=== PATIENT | female | born 1945 | race Caucasian/White ===

== ENCOUNTER 2017-02-20 10:02 | Emergency (ER) | payer MEDICARE, MEDICAID ==
[~2017-02-20] VITALS: Ht 165.1 cm; Wt 81.6 kg
[~2017-02-20 10:02] MED LIST: ACTOS45 MG ORAL; ASPIRIN81 MG ORAL; BENAZEPRIL HCL40 MG ORAL; FAMOTIDINE20 MG ORAL; JANUVIA25 MG ORAL; MELOXICAM15 MG PO; METFORMIN HCL1000 M1 ORAL; MULTIVITAMINS1 EAC2 ORAL; NAPROXEN SODIU550 M1 ORAL; NEXIUM40 MG ORAL; PRAVACHOL40 MG ORAL; PROMETHAZINE-C118 M1 ORAL; TUMS500 MG ORAL; VITAMIN D250000 UNI1 ORAL; ZOFRAN4 M3 ORAL
[2017-02-20] MEDS ORDERED: TdaP Vaccine 0.5ml Syr IM ONE (10:15)
[2017-02-20] MEDS ORDERED: Ketorolac 60mg Inj IM ONE (10:15)
[2017-02-20] MEDS ORDERED: Bacitracin Oint UD TOPIC ONE (10:15)
--- NOTE | 2017-02-20 11:38 | Diagnostic Imaging Report ---
Indication: TRAUMA, pain, status post fall Technique: 3 views of the lumbar spine Comparison: None Findings:Bony alignment is normal. There is degenerative remodeling of the vertebral bodies, vertebral body heights otherwise preserved. There is degenerative disc narrowing at every disc level, worst at L4-5 and L5-S1. There are anterior degenerative proliferative changes. No acute fractures. No dislocations. Pedicles are intact. Sacroiliac joint spaces are preserved. There are cholecystectomy clips Impression:Degenerative changes. No acute bony trauma
[2017-02-20 11:40] VITALS: BP 151/71
--- NOTE | 2017-02-20 12:00 | Diagnostic Imaging Report ---
Indication: TRAUMA, pain, status post fall Technique: 3 views of the left ankle Comparison: none Findings: There is a small plantar spur. No acute fractures. No dislocations. There is mild degenerative narrowing of the ankle joint. Impression: Degenerative changes. No acute bony trauma
--- NOTE | 2017-02-20 13:20 | Diagnostic Imaging Report ---
Indication: TRAUMA, pain, status post fall Technique: 3 views of the left knee Comparison: None Findings:There is medial proliferative change. No acute fractures. There is minimal degenerative joint space narrowing of the medial compartment. There is patella baja. There is probably degenerative narrowing of the patellofemoral joint compartment. No definite suprapatellar effusion. Bones are osteoporotic Impression:No acute bony trauma Degenerative changes, as described
[2017-02-20] MEDS ORDERED: IBUPROFEN600 MG ORAL (13:40)
[2017-02-20] MEDS ORDERED: TRAMADOL HCL50 MG ORAL (13:40)
[2017-02-20] MEDS ORDERED: BACITRACIN15 GM TOPIC (13:40)
[2017-02-20 13:41] VITALS: BP 140/104
[2017-02-20 13:51] VITALS: BP 140/104
--- NOTE | 2017-02-21 00:42 | Emergency Room Report ---
History of Present Illness General Chief Complaint: Multiple Trauma/Fall Source: Patient, EMS Present Illness HPI Patient slipped and twisted L ankle L knee and fell backwards hitting head without LOC. Took motrin last night but unable to sleep well due to pain. Pain is 10/10 ankle and knee - sharp and aching. Applied willie and able to ambulate at home (walked out to meet paramedics). Pain also in lower back, not radiating. No blood thinners, fever, weakness, vomiting. No dysuria. No chest pain, palpitations, dizziness. Scraped L leg. Tetanus > 10. Allergies: Coded Allergies: ASPIRIN (Verified Adverse Reaction, Intermediate, 10/18/16) Stomach pain Patient History Past Medical History: see triage record Social History: Denies: alcohol use, smoking Social History Narrative at home Last Menstrual Period: na Reviewed Nursing Documentation: PMH: Agreed, PSxH: Agreed Nursing Documentation-PMH Past Medical History: No History, Except For Hx Cardiac Problems: No Hx Hypertension: Yes Hx Pacemaker: No Hx Asthma: No Hx COPD: No Hx Diabetes: Yes Hx Gastrointestinal Problems: Yes - gallstones Review of Systems All Other Systems: negative except mentioned in HPI Physical Exam Vital Signs Date Time Temp Pulse Resp B/P Pulse Ox O2 Delivery O2 Flow Rate FiO2 02/20/17 10:16 98.6 88 18 138/66 98 Room Air Sp02 EP Interpretation: reviewed, normal General Appearance: well appearing, no apparent distress, alert, GCS 15 Head: normocephalic, other - occiptal tend without hematoma Eyes: bilateral eye EOMI, bilateral eye PERRL, bilateral eye normal inspection ENT: hearing grossly normal, normal voice Neck: full range of motion, supple, no bony tend, tender - bilaterally with trapezius tenderness Respiratory: no respiratory distress, speaking full sentences Cardiovascular #1: normal peripheral pulses, regular rate, rhythm, no edema Gastrointestinal: non tender, soft, no mass, no organomegaly Musculoskeletal: digits/nails normal - except bunion deform with L 4th toe chronic deformity, no calf tenderness, pelvis stable, decreased range of mation - flexion and extension of L knee, swelling - L knee and ankle with stable ligaments, no significant effusion, no drawer, other - lumbar paraspinous tenderness, no bone tenderness. Able to sit. SLR some lumbar tenderness Neurologic: oriented x3, physician aide III-XII nml as tested, motor strength/tone normal , DTRs symmetric, sensory intact, cerebellar normal, speech normal Psychiatric: mood/affect normal Skin: normal color, warm/dry, abrasions - L upper calf Medical Decision Making Diagnostic Impression: Primary Impression: Ankle sprain Qualified Codes: S93.402A - Sprain of unspecified ligament of left ankle, initial encounter Additional Impressions: Knee sprain Qualified Codes: S83.92XA - Sprain of unspecified site of left knee, initial encounter Lumbar strain/contusion Fall Qualified Codes: W19.XXXA - Unspecified fall, initial encounter Neck strain Qualified Codes: S16.1XXA - Strain of muscle, fascia and tendon at neck level , initial encounter Head contusion Qualified Codes: S00.03XA - Contusion of scalp, initial encounter ER Course Patient presents with L knee, ankle, low back and neck pain post slip and fall last night. Ddx: fx, sprain, contusion, spasms. As ambulatory, suspicion is less likely, but due to age and degree of pain, need to obtain x-rays, knee, ankle ([place] age > 65) and back. Neck exam against fx. Will also treat with analgesia. No red flag sy or signs for CT of head - no LOC and normal neuro - past significant observation period. Xrays with osteopenia and DJD. Sleeping post toradol. Air splint and willie applied by tech. Position excellent and improved. Neurovasc checked by me and normal. Improved. Patient stable for outpatient observation and treatment. Other X-Ray Diagnostic Results Other X-Ray Diagnostic Results #1: X-Ray Ordered: L ankle EP Interpretation: Yes Findings: no fractures, no dislocation, other - STS and osteopenia Number of Views: 3 Other X-Ray Diagnostic Results #2: X-Ray Ordered: L knee EP Interpretation: Yes Findings: no fractures, no dislocation, other - STS and DJD Number of Views: 3 Other X-Ray Diagnostic Results #3: X-Ray Ordered: lumbar EP Interpretation: Yes Findings: no fractures, no dislocation, other - severe DJD Number of Views: 3 Last Vital Signs Date Time Temp Pulse Resp B/P Pulse Ox O2 Delivery O2 Flow Rate FiO2 02/20/17 13:51 98.6 81 18 140/104 97 Room Air Status: improved Disposition: HOME, SELF-CARE Condition: Improved Scripts Bacitracin (Bacitracin) 28.4 Gm Oint...g. 1 APPLIC TOPIC BID, #10 GM 1 Refill Prov: Greg Morrissey M.D. 02/20/17 Tramadol Hcl* (ULTRAM*) 50 Mg Tablet 50 MG ORAL Q6H Y for For Pain, #10 TAB 0 Refills Prov: Greg Morrissey M.D. 02/20/17 Ibuprofen* (MOTRIN*) 600 Mg Tablet 600 MG ORAL Q6HR, #20 TAB 0 Refills Prov: Greg Morrissey M.D. 02/20/17 Patient Instructions: Lumbosacral Strain, Contusion, Cast or Splint Care, RICE for Routine Care of Injuries Additional Instructions: OK to take tylenol. Elevation, ice and rest. Ask your doctor for a sorter operator. Greg Morrissey M.D. Feb 21, 2017 00:42
== END 2017-02-20 14:14 | disposition home or self-care (01) ==
LOC: EDBD 10:02 → EDUNIT# 10:02 → EMR 10:31
DX: S93.402A Sprain of unspecified ligament of left ankle, initial encounter (principal); S83.92XA Sprain of unspecified site of left knee, initial encounter; S39.012A Strain of muscle, fascia and tendon of lower back, initial encounter; S16.1XXA Strain of muscle, fascia and tendon at neck level, initial encounter; S00.03XA Contusion of scalp, initial encounter; Z88.6 Allergy status to analgesic agent; I10 Essential (primary) hypertension; Z23 Encounter for immunization; E11.9 Type 2 diabetes mellitus without complications; M47.896 Other spondylosis, lumbar region; Y92.9 Unspecified place or not applicable; M85.872 Other specified disorders of bone density and structure, left ankle and foot; W01.0XXA Fall on same level from slipping, tripping and stumbling without subsequent striking against object, initial encounter; Y93.9 Activity, unspecified; M17.12 Unilateral primary osteoarthritis, left knee
CPT/HCPCS: 29540; 72020; 90471; 90715; 96372; 99284

== ENCOUNTER 2017-03-07 21:36 | Emergency (ER) | payer MEDICARE, MEDICAID ==
[~2017-03-07] VITALS: Ht 165.1 cm; Wt 83.0 kg
[~2017-03-07 21:36] MED LIST changes: +BACITRACIN15 GM TOPIC; +IBUPROFEN600 MG ORAL; +TRAMADOL HCL50 MG ORAL
[2017-03-07] MEDS ORDERED: Ketorolac 30mg Inj IM ONE (22:15)
[2017-03-07 22:24] VITALS: BP 154/64
--- NOTE | 2017-03-07 22:36 | Emergency Room Report ---
History of Present Illness General Chief Complaint: Multiple Trauma/Fall Source: Patient Present Illness HPI Is a 71-year-old female with no significant aspiration. She presents with chief complaint of buttock pain and tailbone pain. She slipped on wet for yesterday. She landed on her butt. Complaining of left-sided buttock pain. No loss of consciousness. No other injury. Pain is 8/10. No relief with ibuprofen. Described as burning sensation. Worse with palpation. Worse with movement. Allergies: Coded Allergies: ASPIRIN (Verified Adverse Reaction, Intermediate, 10/18/16) Stomach pain Patient History Past Medical History: see triage record, old chart reviewed Past Surgical History: other Pertinent Family History: none Social History: Denies: smoking Now: No Immunizations: other Reviewed Nursing Documentation: PMH: Agreed, PSxH: Agreed Nursing Documentation-PMH Past Medical History: No History, Except For Hx Cardiac Problems: No Hx Hypertension: Yes Hx Pacemaker: No Hx Asthma: No Hx COPD: No Hx Diabetes: Yes Hx Gastrointestinal Problems: Yes - gallstones Review of Systems Eye: Denies: blurred vision, eye pain ENT: Denies: ear pain, nose congestion, throat swelling Respiratory: Denies: cough, shortness of breath Cardiovascular: Denies: chest pain, palpitations Gastrointestinal: Denies: abdominal pain, diarrhea, nausea, vomiting Musculoskeletal: Reports: back pain, Denies: joint pain Skin: Denies: rash Neurological: Denies: headache, numbness Endocrine: Denies: increased thirst, increased urine Hematologic/Lymphatic: Denies: easy bruising All Other Systems: negative except mentioned in HPI Physical Exam Vital Signs Date Time Temp Pulse Resp B/P Pulse Ox O2 Delivery O2 Flow Rate FiO2 03/07/17 21:39 98.1 88 19 162/67 98 Room Air vitals with hypertension Sp02 EP Interpretation: reviewed, normal General Appearance: well appearing, no apparent distress, alert Head: normocephalic, atraumatic Eyes: bilateral eye EOMI, bilateral eye PERRL ENT: hearing grossly normal, normal pharynx Neck: full range of motion, supple, no meningismus Respiratory: chest non-tender, lungs clear, normal breath sounds Cardiovascular #1: regular rate, rhythm, no murmur Gastrointestinal: normal bowel sounds, non tender, no mass, no organomegaly, no bruit, non-distended Musculoskeletal: back normal, gait/station normal, normal range of motion, other - Tenderness over the inferior left buttock. Tenderness over the lower sacral coccygeal area. No ecchymosis. No crepitus. Neurologic: alert, oriented x3 Psychiatric: mood/affect normal Skin: warm/dry Medical Decision Making Diagnostic Impression: Primary Impression: Contusion, buttock Qualified Codes: S30.0XXA - Contusion of lower back and pelvis, initial encounter ER Course She presents with a fall and contusion to the buttock. No fracture dislocation. No cauda equina syndrome. Will discharge home. CT/MRI/US Diagnostic Results CT/MRI/US Diagnostic Results : Imaging Test Ordered: CT pelvis Impression negative per radiologist Last Vital Signs Date Time Temp Pulse Resp B/P Pulse Ox O2 Delivery O2 Flow Rate FiO2 03/07/17 22:24 97.9 84 18 154/64 99 Room Air Status: improved Disposition: HOME, SELF-CARE Condition: Stable Scripts Acetaminophen With Codeine (T#3) (TYLENOL #3 TAB*) Y Tab 1 TAB ORAL Q8H Y for For Pain, #20 TAB Prov: CRISTOBAL CIFUENTES M.D. 03/07/17 Referrals: NOT CHOSEN IPA/,REFERRING (PCP) Additional Instructions: Followup with your Dr. in 7 days. Return if symptom worsen. CRISTOBAL CIFUENTES M.D. Mar 07, 2017 22:36
[2017-03-07] MEDS ORDERED: ACETAMINOPHEN-1 EAC1 ORAL (23:30)
[2017-03-07 23:35] VITALS: BP 154/64
--- NOTE | 2017-03-08 10:06 | Diagnostic Imaging Report ---
Indication: Pelvic trauma and pain Technique: CT pelvis was performed utilizing automated exposure control without intravenous contrast material. Axial and coronal images were generated. CT dose: Total DLP 592 mGycm; CTDI vol 30.0 mGy Comparison: None Findings: There is a questionable anterior cortical defect of the coccyx series 5 image 77 and 78. There is otherwise no CT evident fracture or dislocation. There is degenerative narrowing of the bilateral hips. Degenerative changes are seen of the partially visualized lumbar spine with vacuum phenomenon at L4/L5 and L5/S1. There is osteopenia. Atherosclerotic changes are seen. Impression: Questionable anterior cortical defect of the coccyx series 5 images 77 and 78 possibly a nondisplaced fracture. Followup recommended as indicated. Otherwise no CT evident fracture or dislocation. Clinical correlation recommended. Other findings as above. Findings discussed with Dr. Morillo. The CT scanner at [facility] is accredited by the [employer] and the scans are performed using protocols designed to limit radiation exposure to as low as reasonably achievable to attain images of sufficient resolution adequate for diagnostic evaluation.
== END 2017-03-07 23:35 | disposition home or self-care (01) ==
LOC: EMR 21:55
DX: S30.0XXA Contusion of lower back and pelvis, initial encounter (principal); W01.0XXA Fall on same level from slipping, tripping and stumbling without subsequent striking against object, initial encounter; Y92.9 Unspecified place or not applicable; I10 Essential (primary) hypertension; Z88.6 Allergy status to analgesic agent; E11.9 Type 2 diabetes mellitus without complications
CPT/HCPCS: 72192; 96372; 99284; J1885

== ENCOUNTER 2018-03-02 18:45 | Emergency (ER) | payer MEDICARE, MEDICAID ==
[~2018-03-02] VITALS: Ht 154.9 cm; Wt 72.6 kg
[~2018-03-02 18:45] MED LIST changes: +ACETAMINOPHEN-1 EAC1 ORAL
[2018-03-02] MEDS ORDERED: Albuterol/Ipratropium 3ml neb HHN ONE (19:30)
--- NOTE | 2018-03-02 19:39 | Emergency Room Report ---
History of Present Illness General Chief Complaint: General Complaint Source: Patient Present Illness HPI Patient is a 72-year-old female who presented after increased chest discomfort. Patient reports having intermittent chest discomfort associated with arm numbness. Patient reports having some chest tightness. Patient states she has prior history of diabetes as well as high cholesterol. Patient reports having had chest tightness. She reports having some radiation to her left arm. Patient states that she is a smoker. The patient states that she had no prior heart condition. She states that she had increased pain for the past few hours. She reports having onset of pain with left arm numbness approximate 5 days ago. She reports having increased chest tightness intermittently over the past 2 days. She reports having a choking-like sensation. The patient states that she is a smoker Allergies: Coded Allergies: ASPIRIN (Verified Adverse Reaction, Intermediate, 10/18/16) Stomach pain Patient History Past Medical History: see triage record Last Menstrual Period: n/a Reviewed Nursing Documentation: PMH: Agreed; PSxH: Agreed Nursing Documentation-PMH Hx Cardiac Problems: No Hx Hypertension: Yes Hx Pacemaker: No Hx Asthma: No Hx COPD: No Hx Diabetes: Yes Hx Gastrointestinal Problems: Yes - gallstones Review of Systems All Other Systems: negative except mentioned in HPI Physical Exam Vital Signs Date Time Temp Pulse Resp B/P (MAP) Pulse Ox O2 Delivery O2 Flow Rate FiO2 03/02/18 19:08 97.8 84 16 144/81 98 Room Air 97.9 Sp02 EP Interpretation: reviewed, normal General Appearance: normal inspection, well appearing, no apparent distress, alert, Chronically Ill Head: atraumatic ENT: normal ENT inspection, hearing grossly normal, normal voice Neck: normal inspection, full range of motion, supple, no bony tend Respiratory: normal inspection, lungs clear, normal breath sounds, no respiratory distress, no retraction, no wheezing Cardiovascular #1: regular rate, rhythm, no edema Gastrointestinal: normal inspection, normal bowel sounds, non tender, soft, no guarding, no hernia Genitourinary: no CVA tenderness Musculoskeletal: normal inspection, back normal, normal range of motion Neurologic: normal inspection, alert, oriented x3, responsive, construction inspector III-XII nml as tested, speech normal Psychiatric: normal inspection, judgement/insight normal, mood/affect normal Skin: normal inspection, normal color, no rash Medical Decision Making Diagnostic Impression: Primary Impression: STEMI (ST elevation myocardial infarction) ER Course This patient presented for chest pain. Differential diagnosis included but was not limited to acute coronary syndrome, pulmonary embolism, pneumonia, aortic dissection, shingles, pneumothorax, aortic dissection, esophageal rupture, pericarditis. Because of complexity of patient's case laboratory testing and imaging studies were ordered. EKG interpreted by me showed normal sinus rhythm with a rate of [address] elevation in the inferior and lateral leads the patient was noted to have some lateral reciprocal changes. The patient was noted to be allergic to aspirin. The patient was given Plavix. Patient was discussed with Dr. Lewis at [facility] for STEMI transfer. EKG Diagnostic Results Rate: normal ST Segments: other - st elevation inferior ASA given to the pt in ED: No - aspirin allergy Rhythm Strip Diag. Results EP Interpretation: yes Rhythm: NSR, no PVC's, no ectopy Last Vital Signs Date Time Temp Pulse Resp B/P (MAP) Pulse Ox O2 Delivery O2 Flow Rate FiO2 03/02/18 19:08 97.8 84 16 144/81 98 Room Air 97.9 Status: unchanged Disposition: ER [facility] Condition: Serious Rigo Bardales Mar 02, 2018 19:39
[2018-03-02] MEDS: Heparin 5000 units/ml inj IV ONE (19:44)
[2018-03-02] MEDS ORDERED: Heparin 25,000u/D5W 500ml 500 ML IV SCH (19:45)
[2018-03-02 19:57] VITALS: BP 112/54
[2018-03-02] MEDS: Aspirin Baby 81mg ORAL ONE (20:01)
[2018-03-02 20:04] LABS: BASOPHILS % (AUTO) 1.3 % (0.0-2.0); EOSINOPHILS % (AUTO) 1.2 % (0.0-3.0); HEMATOCRIT 39.7 % (37.0-47.0); HEMOGLOBIN 13.3 G/DL (12.0-16.0); LYMPHOCYTES % (AUTO) 24.2 % (20.0-45.0); MEAN CORPUSCULAR VOLUME 90 FL (80-99); NEUTROPHILS % (AUTO) 68.3 % (45.0-75.0); PLATELET COUNT 150 K/UL (150-450); RED BLOOD COUNT 4.43 M/UL (4.20-5.40); RED CELL DISTRIBUTION WIDTH 13.3 % (11.6-14.8); WHITE BLOOD COUNT 9.4 K/UL (4.8-10.8)
[2018-03-02 20:09] LABS: ANION GAP 6 mmol/L (5-15); BLOOD UREA NITROGEN 19 mg/dL (7-18); CALCIUM 9.1 MG/DL (8.5-10.1); CARBON DIOXIDE 28 MMOL/L (21-32); CHLORIDE 100 MMOL/L (98-107); CREATININE 0.8 MG/DL (0.55-1.30); POTASSIUM 4.8 MMOL/L (3.5-5.1); SODIUM 134 MMOL/L (136-145)
[2018-03-02 20:19] VITALS: BP 112/54
[2018-03-02 20:22] LABS: ALANINE AMINOTRANSFERASE 34 U/L (12-78); ALBUMIN 3.7 G/DL (3.4-5.0); ALKALINE PHOSPHATASE 82 U/L (46-116); ASPARTATE AMINO TRANSFERASE 32 U/L (15-37); BILIRUBIN,TOTAL 0.3 MG/DL (0.2-1.0); CKMB 8.5 NG/ML (0.0-3.6); CREATINE KINASE 196 U/L (26-308)
--- NOTE | 2018-03-03 10:53 | Diagnostic Imaging Report ---
Indication: Neck pain Comparison: None Findings: Two views of the neck performed. There is no soft tissue swelling or mass identified. The epiglottis is unremarkable. Subglottic airway and retropharyngeal region appear clear. No radiopaque foreign body is identified. Impression: Negative evaluation of the neck.
--- NOTE | 2018-03-03 10:54 | Diagnostic Imaging Report ---
Indication: Dyspnea Comparison: 10/18/2016 A single view chest radiograph was obtained. Findings: Mild pulmonary vascular congestion demonstrated. Interstitial densities are present. Bones are slightly osteopenic. Heart is borderline enlarged. IMPRESSION: Probable mild interstitial edema. Please correlate clinically
--- NOTE | 2018-03-03 16:33 | Cardiology Report ---
APPROVED REPORT EKG Measurement Heart [id number] CT 180P45 [id number] Sinus rhythm with occasional premature ventricular complexes and fusion complexes ST elevation, consider inferior injury or acute infarct Consider right ventricular involvement in acute inferior infarct Abnormal ECG
== END 2018-03-02 20:20 | disposition short-term general hospital (02) ==
LOC: EMR 19:44
DX: I21.19 ST elevation (STEMI) myocardial infarction involving other coronary artery of inferior wall (principal); I10 Essential (primary) hypertension; E11.9 Type 2 diabetes mellitus without complications; Z88.6 Allergy status to analgesic agent
CPT/HCPCS: 36415; 70360; 71045; 80053; 82550; 82553; 83880; 84484; 85025; 85379; 85730; 93005; 96374; 99285; J1644

== ENCOUNTER 2018-06-07 15:09 | Emergency (ER) | payer MEDICARE, MEDICAID ==
[~2018-06-07] VITALS: Ht 162.6 cm; Wt 81.6 kg
[2018-06-07 15:02] VITALS: BP 136/58
[~2018-06-07 15:09] MED LIST changes: +Isovue-300 100ml vial INJ PRN
--- NOTE | 2018-06-07 15:22 | Emergency Room Report ---
History of Present Illness General Chief Complaint: Chest Pain Source: Patient Present Illness HPI 72 y/o female complains of chest pain and upper abdominal pain for several weeks. Pt states worse with movement or deep breath. Pt has history, per her, of NE treated at [facility] with stent but this feels different than that CP. Also, complains of dusphagia with food getting stuck recently. Abd pain mainly in LUQ but some to RUQ. Worse with eating. Allergies: Coded Allergies: ASPIRIN (Verified Adverse Reaction, Intermediate, 10/18/16) Stomach pain Patient History Past Medical History: see triage record Past Surgical History: none Pertinent Family History: none Social History: Reports: smoking Nursing Documentation-PMH Hx Cardiac Problems: Yes Hx Hypertension: Yes Hx Pacemaker: No Hx Asthma: No Hx COPD: No Hx Diabetes: Yes Hx Gastrointestinal Problems: Yes - gallstones Review of Systems Constitutional: Reports: weakness; Denies: no symptoms, see HPI, chills, sweats , fever, malaise, other Eye: Denies: no symptoms, see HPI, eye pain, blurred vision, tearing, double vision, nose pain, nose congestion, acuity changes, discharge, other ENT: Denies: no symptoms, see HPI, ear pain, ear discharge, nose pain, nose congestion, throat pain, throat swelling, mouth pain, hearing loss, nasal discharge, other Respiratory: Reports: shortness of breath; Denies: no symptoms, see HPI, cough , orthopnea, stridor, wheezing, CANO, sputum, other Cardiovascular: Reports: chest pain; Denies: no symptoms, see HPI, edema, palpitations, syncope, PND, other Gastrointestinal: Reports: abdominal pain; Denies: no symptoms, see HPI, constipation, diarrhea, nausea, vomiting, melena, hematemesis, other Genitourinary: Denies: no symptoms, see HPI, discharge, dysuria, frequency, hematuria, pain, retention, incontinence, urgency, vag bleed/dc, other Musculoskeletal: Denies: no symptoms, see HPI, back pain, gout, joint pain, joint swelling, muscle pain, muscle stiffness, other Skin: Denies: no symptoms, see HPI, rash, change in color, change in hair/nails , dryness, lesions, other Neurological: Denies: no symptoms, see HPI, headache, numbness, paresthesia, seizure, tingling, tremors, focal weakness, syncope, dizziness, other Allergic: Denies: no symptoms, see HPI, urticaria, hay fever, other Physical Exam Vital Signs Date Time Temp Pulse Resp B/P (MAP) Pulse Ox O2 Delivery O2 Flow Rate FiO2 06/07/18 14:30 98.2 88 16 108/62 99 Room Air 98.2 Sp02 EP Interpretation: reviewed, normal General Appearance: no apparent distress, alert, GCS 15, non-toxic Head: normocephalic, atraumatic Eyes: bilateral eye normal inspection, bilateral eye PERRL ENT: hearing grossly normal, normal pharynx, no angioedema, normal voice Neck: full range of motion, supple/symm/no masses Respiratory: chest non-tender, lungs clear, normal breath sounds, speaking full sentences Cardiovascular #1: regular rate, rhythm, no edema Gastrointestinal: normal bowel sounds, soft, non-distended, no guarding, no rebound, tenderness - mild LUQ TTP Musculoskeletal: back normal, gait/station normal, normal range of motion, non- tender, calf tenderness Neurologic: alert, oriented x3, responsive, motor strength/tone normal, sensory intact, speech normal Psychiatric: judgement/insight normal, memory normal, mood/affect normal, no suicidal/homicidal ideation Skin: normal color, no rash, warm/dry, well hydrated Medical Decision Making Diagnostic Impression: Primary Impression: Chest pain Qualified Codes: R07.89 - Other chest pain Additional Impressions: Dysphagia Qualified Codes: R13.10 - Dysphagia, unspecified Abdominal pain Qualified Codes: R10.10 - Upper abdominal pain, unspecified ER Course Patient is a 72-year-old female complaining of chest pain, abdominal pain, dysphagia, and multiple other complaints. Patient's workup in the emergency department including EKG, laboratory studies, CT of the abdomen and pelvis are all unremarkable for any acute pathology. In my opinion the patient can be safely discharged home. The patient's been able toward the department without any difficulty. The patient to contact a GI specialist for her difficulty swallowing but that we cannot help that particular problem in the emergency department. Laboratory Tests Test 06/07/18 15:30 06/07/18 16:00 White Blood Count 6.8 K/UL (4.8-10.8) Red Blood Count 3.87 M/UL (4.20-5.40) L Hemoglobin 11.6 G/DL (12.0-16.0) L Hematocrit 34.8 % (37.0-47.0) L Mean Corpuscular Volume 90 FL (80-99) Mean Corpuscular Hemoglobin 30.1 PG (27.0-31.0) Mean Corpuscular Hemoglobin Concent 33.4 G/DL (32.0-36.0) Red Cell Distribution Width 13.2 % (11.6-14.8) Platelet Count 161 K/UL (150-450) Mean Platelet Volume 13.5 FL (6.5-10.1) H Neutrophils (%) (Auto) 53.1 % (45.0-75.0) Lymphocytes (%) (Auto) 37.1 % (20.0-45.0) Monocytes (%) (Auto) 6.8 % (1.0-10.0) Eosinophils (%) (Auto) 2.0 % (0.0-3.0) Basophils (%) (Auto) 1.0 % (0.0-2.0) Sodium Level 137 MMOL/L (136-145) Potassium Level 4.3 MMOL/L (3.5-5.1) Chloride Level 106 MMOL/L (98-107) Carbon Dioxide Level 24 MMOL/L (21-32) Anion Gap 7 mmol/L (5-15) Blood Urea Nitrogen 12 mg/dL (7-18) Creatinine 0.7 MG/DL (0.55-1.30) Estimate Glomerular Filtration Rate mL/min (>60) Glucose Level 168 MG/DL (74-106) H Calcium Level 8.8 MG/DL (8.5-10.1) Total Bilirubin 0.2 MG/DL (0.2-1.0) Aspartate Amino Transferase (AST) 17 U/L (15-37) Alanine Aminotransferase (ALT) 23 U/L (12-78) Alkaline Phosphatase 101 U/L (46-116) Troponin I 0.015 ng/mL (0.000-0.056) Total Protein 6.9 G/DL (6.4-8.2) Albumin 3.2 G/DL (3.4-5.0) L Globulin 3.7 g/dL Albumin/Globulin Ratio 0.9 (1.0-2.7) L Lipase 106 U/L (73-393) Urine Color Pale yellow Urine Appearance Clear Urine pH 5 (4.5-8.0) Urine Specific Switzer 1.010 (1.005-1.035) Urine Protein Negative (NEGATIVE) Urine Glucose (UA) 1+ (NEGATIVE) H Urine Ketones Negative (NEGATIVE) Urine Occult Blood Negative (NEGATIVE) Urine Nitrite Negative (NEGATIVE) Urine Bilirubin Negative (NEGATIVE) Urine Urobilinogen Normal MG/DL (0.0-1.0) Urine Leukocyte Esterase Negative (NEGATIVE) EKG Diagnostic Results EKG Time: 14:42 Rhythm: NSR ST Segments: no acute changes Other Impression nl axis Last Vital Signs Date Time Temp Pulse Resp B/P (MAP) Pulse Ox O2 Delivery O2 Flow Rate FiO2 06/07/18 15:02 98.4 75 23 136/58 99 Room Air 98.4 Disposition: HOME, SELF-CARE Condition: Stable ALAN PAGAN Jun 07, 2018 15:22
[2018-06-07 16:08] LABS: HEMATOCRIT 34.8 % (37.0-47.0); HEMOGLOBIN 11.6 G/DL (12.0-16.0); LYMPHOCYTES % (AUTO) 37.1 % (20.0-45.0); MEAN CORPUSCULAR VOLUME 90 FL (80-99); MONOCYTES % (AUTO) 6.8 % (1.0-10.0); NEUTROPHILS % (AUTO) 53.1 % (45.0-75.0); PLATELET COUNT 161 K/UL (150-450); RED BLOOD COUNT 3.87 M/UL (4.20-5.40); RED CELL DISTRIBUTION WIDTH 13.2 % (11.6-14.8); WHITE BLOOD COUNT 6.8 K/UL (4.8-10.8)
[2018-06-07 16:18] LABS: ANION GAP 7 mmol/L (5-15); BLOOD UREA NITROGEN 12 mg/dL (7-18); CALCIUM 8.8 MG/DL (8.5-10.1); CARBON DIOXIDE 24 MMOL/L (21-32); CHLORIDE 106 MMOL/L (98-107); CREATININE 0.7 MG/DL (0.55-1.30); POTASSIUM 4.3 MMOL/L (3.5-5.1); SODIUM 137 MMOL/L (136-145)
[2018-06-07 16:22] LABS: APPEARANCE,URINE CLEAR; BILIRUBIN, URINE NEGATIVE (NEGATIVE); COLOR,URINE PALE YELLOW; GLUCOSE, URINE (UA) 1+ (NEGATIVE); KETONES,URINE NEGATIVE (NEGATIVE); LEUKOCYTE ESTERASE ,URINE NEGATIVE (NEGATIVE); NITRITE,URINE NEGATIVE (NEGATIVE); PH,URINE 5 (4.5-8.0); PROTEIN,URINE NEGATIVE (NEGATIVE); UROBILINOGEN,URINE NORMAL MG/DL (0.0-1.0)
[2018-06-07 16:22] LABS: ALANINE AMINOTRANSFERASE 23 U/L (12-78); ALBUMIN 3.2 G/DL (3.4-5.0); ALBUMIN/GLOBULIN RATIO 0.9 (1.0-2.7); ALKALINE PHOSPHATASE 101 U/L (46-116); ASPARTATE AMINO TRANSFERASE 17 U/L (15-37); BILIRUBIN,TOTAL 0.2 MG/DL (0.2-1.0)
[2018-06-07 18:50] VITALS: BP 146/59
--- NOTE | 2018-06-08 08:22 | Diagnostic Imaging Report ---
Indication: Abdominal pain Technique: CT of the abdomen and pelvis utilizing automated exposure control with intravenous contrast. Venous scanning performed. Axial, sagittal and coronal reformats presented. CT dose: Total DLP 890.45 mGycm; CTDI vol 16.14 mGy Comparison: CT of the pelvis 03/07/2017 Findings: Dependent atelectasis noted in the lung bases. There is no pericardial effusion. Aortic valvular calcifications partially visualized. Patient is status post cholecystectomy. Mild biliary ectasia is likely related to postcholecystectomy state. Correlate with liver function tests. Liver is normal in contour. No focal hepatic mass lesion appreciated on this single phase study. Portal vein is appears patent. Spleen, adrenal glands and pancreas unremarkable. Kidneys enhance symmetrically. No urinary tract stone or hydronephrosis bilaterally. Bladder unremarkable. Uterus appears atrophic. No free intraperitoneal air or fluid. No evidence of bowel obstruction or inflammation. Appendix is normal. Atherosclerotic calcifications noted in a normal caliber abdominal aorta. No pathologically enlarged lymphadenopathy. There is osteopenia with multilevel degenerative change of the lumbar spine with vacuum disc phenomenon at multiple levels. There is resultant combination of congenital and acquired spinal stenosis with some areas of severe stenosis in the lower lumbar spine. No acute fracture. There is a tiny fat-containing umbilical hernia. Some mild infiltration is noted in the anterior subcutaneous tissues of the right abdominal wall, possibly secondary to medication injection. No well-defined/drainable fluid collection suggest abscess. IMPRESSION: * No evidence of bowel obstruction or inflammation. Normal appendix. * No hydronephrosis or urinary tract stones. * Status post cholecystectomy. Mild biliary ectasia likely related to postcholecystectomy state. Correlation with liver function tests recommended. * Multilevel degenerative change of the lumbar spine with areas of associated spinal canal stenosis, severe in some places. Consider MRI of the lumbar spine for better evaluation of the central cord, disks and nerve roots as clinically indicated. This corresponds with the statrad preliminary report. The CT scanner at [facility] is accredited by the [employer] and the scans are performed using protocols designed to limit radiation exposure to as low as reasonably achievable to attain images of sufficient resolution adequate for diagnostic evaluation.
--- NOTE | 2018-06-08 14:10 | Cardiology Report ---
APPROVED REPORT EKG Measurement Heart [id number] Normal sinus rhythm Inferior infarct, age undetermined Abnormal ECG
== END 2018-06-07 18:50 | disposition home or self-care (01) ==
LOC: EDBD 15:09 → EMR 15:30
DX: R07.89 Other chest pain (principal); R13.10 Dysphagia, unspecified; R10.10 Upper abdominal pain, unspecified; E11.9 Type 2 diabetes mellitus without complications; I10 Essential (primary) hypertension; Z88.6 Allergy status to analgesic agent; F17.200 Nicotine dependence, unspecified, uncomplicated
CPT/HCPCS: 36415; 74177; 80053; 81003; 83690; 84484; 85025; 93005; 99283; Q9967